=== PATIENT | male | born 1955 | race Caucasian/White ===

== ENCOUNTER 2019-08-11 12:28 | Outpatient (CLI) | payer BC, SELFPAY ==
--- NOTE | ~2019-08-11 | CT_ITS ---
EXAMINATION: CT abdomen pelvis wo con EXAM DATE: 08/11/2019 13:08 INDICATION: Hernia. TECHNIQUE: Spiral CT of the abdomen and pelvis was performed without contrast. Axial, coronal and sag ittal images were reviewed. The dose-length product (DLP) for this examination was 1047.50 mGy-cm. The exposure was tailored according to patient size (auto mA exposure control), and iterative reconst ruction (ASIR) was used as additional dose reduction technique. Comparison is made to prior examinati on from 05/18/17. FINDINGS: There is no nephrolithiasis or hydronephrosis. There is moderate prostatomegaly. The blad mikki is unremarkable. The liver, spleen, adrenal glands and pancreas are unremarkable. Gallbladder i s unremarkable. No biliary obstruction. There is no retroperitoneal or pelvic lymphadenopathy. Th ere is mild scattered arteriosclerotic disease. There are small to moderate sized bilateral inguinal fat-containing hernias. The appendix is normal. There is moderate scattered colonic diverticulosis. There is no adjacent inf lammatory change to suggest diverticulitis. The stomach and small bowel are unremarkable. There is e xpected amount of colonic stool. No free intraperitoneal gas. The heart is normal in size. There are no pericardial or pleural effusions. The lung bases are unremarkable. There are no osteoblasti c or osteolytic lesions identified. Posterior fusion L4-5. IMPRESSION: 1. Small to moderate-sized bilateral inguinal fat-containing hernias. 2. Moderate colonic diverticulosis. 3. Moderate prostatomegaly. Reviewed, dictated and finalized at location B.
== END 2019-08-11 12:29 | disposition home or self-care (01) ==
LOC: ANHIMG 12:31
PROVIDERS: PCP Family Medicine; Visit Provider Family Medicine
DX: K40.10 Bilateral inguinal hernia, with gangrene, not specified as recurrent (principal); K57.30 Diverticulosis of large intestine without perforation or abscess without bleeding; N40.0 Benign prostatic hyperplasia without lower urinary tract symptoms
CPT/HCPCS: 74176

== ENCOUNTER 2020-11-17 09:33 | Outpatient (CLI) | payer BC, SELFPAY ==
--- NOTE | ~2020-11-17 | CT_ITS ---
EXAMINATION: CT abdomen pelvis wo con EXAM DATE: 11/17/2020 10:06 INDICATION: Right-sided abdominal pain. Hernia repair. TECHNIQUE: Spiral CT of the abdomen and pelvis was performed without contrast. Axial, coronal and s agittal images of the abdomen and pelvis were reviewed. The dose-length product (DLP) for this exami [employer] was 1081.78 mGy-cm. The exposure was tailored according to patient size (auto mA exposure con trol), and iterative reconstruction (ASIR) was used as additional dose reduction technique. Compariso n is made to prior examination from 08/11/2019. FINDINGS: The liver, spleen, adrenal glands and pancreas are unremarkable. Gallbladder is unremarkab le. No biliary obstruction. There is no nephrolithiasis or hydronephrosis. The prostate measures 6.8 cm in diameter, moderately enlarged. The bladder is unremarkable. There is no retroperitoneal o r pelvic lymphadenopathy. Small to moderate bilateral inguinal fat-containing hernias. The appendix is normal. There is moderate descending colonic colonic diverticulosis. There is no adj acent inflammatory change to suggest diverticulitis. The stomach and small bowel are unremarkable. T here is expected amount of colonic stool. No free intraperitoneal gas. The heart is normal in siz e. There are no pericardial or pleural effusions. Right basilar granuloma. Lumbar fusion hardware L4-5. IMPRESSION: 1. Small to moderate-sized bilateral inguinal fat-containing hernias. 2. Moderate prostatomegaly. Reviewed, dictated and finalized at location A.
== END 2020-11-17 09:34 | disposition home or self-care (01) ==
LOC: ANHIMG 09:35
PROVIDERS: PCP Family Medicine; Visit Provider Family Medicine
DX: R10.9 Unspecified abdominal pain (principal); N40.0 Benign prostatic hyperplasia without lower urinary tract symptoms; K40.20 Bilateral inguinal hernia, without obstruction or gangrene, not specified as recurrent
CPT/HCPCS: 74176

== ENCOUNTER 2021-01-22 02:29 | Day surgery (SDC) | payer BC, SELFPAY ==
[2021-01-16 13:22] VITALS: BMI 29.2
[2021-01-22 11:09] VITALS: BP 148/82; PULSE 78; RESP 18; TEMP 36.9; O2SAT 98; BMI 26.4
[2021-01-22] MEDS: LACTATED RINGERS 1,000 ML 150 ML IV CONT (11:17)
--- NOTE | 2021-01-22 11:28 | WPDANESEPPF ---
Anes - Initial Pre Proc Eval Procedure: Operation Date: 01/22/21 12:30 Proposed Procedures p Esophagogastroduodenoscopy & Colonoscopy - Boyd Greer MD Date/Time: 01/22/21 11:28 Surgeon: Boyd Greer MD Pre Op Diagnosis: Abdomen Pain,Hx of Colon polyps Patient Data Age: 65 Gender: M Height: 1.93 m Weight: 98.7 kg Last Vital Signs Temp 98.4 F 01/22/21 11:09 Pulse 78 01/22/21 11:09 Resp 18 01/22/21 11:09 BP 148/82 H 01/22/21 11:09 Pulse Ox 98 01/22/21 11:09 Allergies Allergy/AdvReac Type Severity Reaction Status Date / Time codeine Allergy Unknown Abdominal Verified 01/22/21 11:08 Pain hydrocodone AdvReac Unknown NAUSEA Verified 01/22/21 11:08 Home Medications Medication Instructions Recorded Confirmed Type amlodipine 5 mg tablet 5 mg PO DAILY 01/09/21 01/16/21 History aspirin 81 mg tablet,delayed 81 mg PO DAILY 01/09/21 01/16/21 History release esomeprazole magnesium 40 mg 40 mg PO DAILY 01/09/21 01/16/21 History capsule,delayed release metaxalone 800 mg tablet 800 mg PO DAILY 01/09/21 01/16/21 History niacin 1,000 mg tablet,extended 1,000 mg PO QHS 01/09/21 01/16/21 History release 24 hr omega-3 fatty acids 1,000 mg 1,000 mg PO BID 01/09/21 01/16/21 History capsule rosuvastatin 10 mg tablet 10 mg PO DAILY 01/09/21 01/16/21 History trandolapril 2 mg tablet 2 mg PO DAILY 01/09/21 01/16/21 History multivit with min-folic acid 1 tablet PO DAILY 01/16/21 01/16/21 History [Adult One Daily Multivitamin] Patient hx anesthesia problems: none Family hx anesthesia problems: none PMFSH Past Medical History Medical History (Updated 01/09/21 @ 13:54 by KRYSTA Vee) GERD (gastroesophageal reflux disease) HTN (hypertension) Overweight (BMI 25.0-29.9) Family History Family History Father Family history of lung cancer Sibling Malignant neoplasm of prostate Other Diabetes mellitus Social History Social History Smoking status: Former smoker Tobacco type: cigarettes Alcohol intake: current Drinks per week: 6 Living arrangements: with family Spiritual care concerns: No Anes - Eval Final PreProcedure Day of Procedure 01/22/21 11:28 Patient weight: obese Heart: regular rate and rhythm Airway: Mallampati scale class II Neurological: alert and oriented Last oral intake: >/= 8 hours ASA classification: III Emergent: no Anesthetic plan: proceed Anesthesia type and monitoring: general GIVS and standard monitoring Informed Consent: The patient's anesthetic plan and its attendant risks and benefits were discussed with the patient/family/POA. Questions were solicited and answers provided to the satisfaction of the patient/family/POA.
--- NOTE | 2021-01-22 11:31 | PM.HPGS ---
History of Present Illness History of Present Illness Consent: Risks, benefits, and alternatives have been discussed and questions answered. Patient agrees to proceed with procedure. Chief complaint: Abdomen Pain,Hx of Colon polyps Narrative: Armand Lewis Sr. is a 65 year old male with recent abdominal pain on right side, RUQ this began in September after changing a tire. He has had an inguinal hernia him that the surgeon said that the hernia site is intact. He also has a history of colon polyps Review of Systems Review of Systems: All systems reviewed & are unremarkable except as noted in HPI and below PMFSH Past Medical History Medical History GERD (gastroesophageal reflux disease) HTN (hypertension) Overweight (BMI 25.0-29.9) Family History Family History Father Family history of lung cancer Sibling Malignant neoplasm of prostate Other Diabetes mellitus Social History Social History Smoking status: Former smoker Tobacco type: cigarettes Alcohol intake: current Drinks per week: 6 Living arrangements: with family Spiritual care concerns: No Meds Home Medications and Allergies Home Medications Medication Instructions Recorded Confirmed Type amlodipine 5 mg tablet 5 mg PO DAILY 01/09/21 01/16/21 History aspirin 81 mg tablet,delayed 81 mg PO DAILY 01/09/21 01/16/21 History release esomeprazole magnesium 40 mg 40 mg PO DAILY 01/09/21 01/16/21 History capsule,delayed release metaxalone 800 mg tablet 800 mg PO DAILY 01/09/21 01/16/21 History niacin 1,000 mg tablet,extended 1,000 mg PO QHS 01/09/21 01/16/21 History release 24 hr omega-3 fatty acids 1,000 mg 1,000 mg PO BID 01/09/21 01/16/21 History capsule rosuvastatin 10 mg tablet 10 mg PO DAILY 01/09/21 01/16/21 History trandolapril 2 mg tablet 2 mg PO DAILY 01/09/21 01/16/21 History multivit with min-folic acid 1 tablet PO DAILY 01/16/21 01/16/21 History [Adult One Daily Multivitamin] Allergies Allergy/AdvReac Type Severity Reaction Status Date / Time codeine Allergy Unknown Abdominal Verified 01/22/21 11:08 Pain hydrocodone AdvReac Unknown NAUSEA Verified 01/22/21 11:08 Vital Signs Vital Signs - 24 hr 01/22/21 11:09 Temperature 36.9 C Pulse Rate 78 Respiratory Rate 18 Blood Pressure 148/82 H Pulse Oximetry 98 Exam Const: General: alert Orientation/consciousness: patient oriented x3 Resp: Auscultation: clear to auscultation bilaterally Cardio: Rhythm: regular rhythm GI: GI Palp: Yes Soft to palpation and No Tenderness to palpation present (GI) Neuro: General: patient oriented x3 Assessment and Plan Assessment and plan (1) Abdominal pain: Code(s): R10.9 - Unspecified abdominal pain Status: Acute Assessment and Plan: EGD with possible biopsy or dilatation or cautery. (2) Personal history of colonic polyps: Code(s): Z86.010 - Personal history of colonic polyps Status: Acute Assessment and Plan: Colonoscopy with possible biopsy or polypectomy or cautery or injection of substances.
[2021-01-22 12:11] VITALS: BP 114/81; BP 123/80; PULSE 62; PULSE 71; RESP 13; RESP 16; O2SAT 96
[2021-01-22 12:21] VITALS: BP 126/89; PULSE 64; RESP 12; O2SAT 99
[2021-01-22 12:31] VITALS: BP 137/92; PULSE 64; RESP 20; O2SAT 99
== END 2021-01-22 12:47 | disposition home or self-care (01) ==
PROVIDERS: PCP Family Medicine; Visit Provider Internal Medicine Gastroenterology
PROC: 0DJ08ZZ Inspection of Upper Intestinal Tract, Via Natural or Artificial Opening Endoscopic (ICD-10-PCS; CPT 43235; principal; 2021-01-22 12:30)
DX: Z12.11 Encounter for screening for malignant neoplasm of colon (principal); K57.30 Diverticulosis of large intestine without perforation or abscess without bleeding; Z86.010 Personal history of colon polyps; R10.11 Right upper quadrant pain; K21.9 Gastro-esophageal reflux disease without esophagitis; I10 Essential (primary) hypertension; Z87.891 Personal history of nicotine dependence; Z79.82 Long term (current) use of aspirin
CPT/HCPCS: 45378; 43239; 87081; 88305; J2704; J7120

== ENCOUNTER → 2022-12-06 12:42 | Outpatient (CLI) | payer BC, SELFPAY ==
--- NOTE | ~2022-12-06 | CT_ITS ---
CT Scan of the Chest without Contrast: Clinical Indication: Lung cancer screening, personal history of tobacco dependence Technique: Contiguous sections were acquired throughout the chest without intravenous contrast. Dose reduction technique was used on this scan by utilizing automated exposure control and iterative recon struction technique. The dose-length product (DLP) was 176.16 mGy-cm. COMPARISON: 05/08/2012 Findings: There is no evidence of any significant mediastinal, hilar or axillary lymphadenopathy. Calcified sub carinal and right hilar lymph nodes are present. The mediastinal soft tissues appear normal. There is no evidence of pleural or pericardial effusion. Calcified right lower lobe granulomas are present. Images through the upper abdomen reveal small hepatic cysts. Impression: Lung RADS 2: Benign appearance. 12 month follow-up screening CT advised. Reviewed, dictated and finalized at [facility]. Impression: Lung RADS 2: Benign appearance. 12 month follow-up screening CT advised.
== END ==
PROVIDERS: PCP Family Medicine; Visit Provider Family Medicine
DX: Z72.0 Tobacco use (principal)
CPT/HCPCS: 71271

== ENCOUNTER 2024-01-28 09:16 | Outpatient (CLI) | payer MEDICARE, SELFPAY ==
--- NOTE | ~2024-01-28 | XR_ITS ---
XR shoulder RT min 2V Ordering provider: Yani Thomason, [employer] History: . PAIN OF R SHOULDER JOINT X 2 MTHS . Comparison: None. FINDINGS: BONES: No acute fracture or dislocation. JOINT SPACES: The acromioclavicular joint is normal. The glenohumeral joint is normal. SOFT TISSUES: Normal. IMPRESSION: No acute osseous abnormality right shoulder. Reviewed, dictated and finalized at location A.
== END 2024-01-28 09:17 | disposition home or self-care (01) ==
PROVIDERS: PCP Nurse Practitioner Family; Visit Provider Nurse Practitioner Family
DX: M25.511 Pain in right shoulder (principal)
CPT/HCPCS: 73030

== ENCOUNTER 2024-08-24 09:24 | Outpatient (CLI) | payer MEDICARE, SELFPAY ==
--- NOTE | ~2024-08-24 | CT_ITS ---
CT Scan of the Chest without Contrast: Clinical Indication: Lung cancer screening, nicotine dependence Technique: Contiguous sections were acquired throughout the chest without intravenous contrast. Dose reduction technique was used on this scan by utilizing automated exposure control and iterative recon struction technique. The dose-length product (DLP) was 222.39 mGy-cm. COMPARISON: 12/06/2022 Findings: There is no evidence of any significant mediastinal, hilar or axillary lymphadenopathy. Calcified sub carinal and right hilar lymph nodes are present. Coronary artery calcifications are present. There is no evidence of pleural or pericardial effusion. The lungs are clear, aside from calcified right lower lobe granulomas. Images through the upper abdomen reveal no abnormalities. Impression: Lung RADS 2: Benign appearance. 12 month follow-up screening CT advised. Reviewed, dictated and finalized at [facility]. Impression: Lung RADS 2: Benign appearance. 12 month follow-up screening CT advised.
== END 2024-08-24 09:25 | disposition home or self-care (01) ==
LOC: MICIMG 09:24
PROVIDERS: PCP Nurse Practitioner Family; Visit Provider Nurse Practitioner Family
DX: F17.210 Nicotine dependence, cigarettes, uncomplicated (principal)
CPT/HCPCS: 71271

== ENCOUNTER 2025-02-09 09:01 | Outpatient (CLI) | payer MEDICARE, SELFPAY ==
--- NOTE | ~2025-02-09 | XR_ITS ---
EXAMINATION: XR hip BI 2V w AP pelvis, 02/09/2025 9:24 CDT HISTORY: PAIN IN LEFT HIP, PT STATES HE BROKE HIS PELVIS WHEN HE WAS COMPARISON: No comparisons available. Findings: No acute fracture or malalignment. No significant degenerative changes. Soft tissues unremarkable. Impression: No acute fracture or malalignment. Reviewed, dictated and finalized at location P. Impression: No acute fracture or malalignment.
== END 2025-02-09 09:02 | disposition home or self-care (01) ==
PROVIDERS: PCP Nurse Practitioner Family; Visit Provider Nurse Practitioner Family
DX: M25.552 Pain in left hip (principal)
CPT/HCPCS: 73521